=== PATIENT | female | born 1935 | race Native Hawaiian/Other Pacific Islander ===

== ENCOUNTER 2016-11-27 11:46 | Outpatient (CLI) | payer OTHER | END 2016-11-27 19:09 | disposition home or self-care (01) | LOC: RAD 11:46 | DX: M25.511 Pain in right shoulder (principal) ==

== ENCOUNTER 2017-01-05 14:20 | Emergency (ER) | payer OTHER ==
[~2017-01-05] VITALS: Ht 162.6 cm; Wt 90.7 kg
[2017-01-05] MEDS ORDERED: FURO40TA93 PO (14:44)
[2017-01-05] MEDS ORDERED: ALLO300T23 PO (14:44)
[2017-01-05] MEDS ORDERED: TRAM50TA PO (14:45)
[2017-01-05] MEDS ORDERED: LABETALOL200 MG OR (14:46)
[2017-01-05] MEDS ORDERED: CLONIDINE0.3 MG PO (14:46)
[2017-01-05] MEDS ORDERED: CARB25TA29 PO (14:46)
[2017-01-05] MEDS ORDERED: CELEXA20 MG PO (14:47)
[2017-01-05] MEDS ORDERED: SIMV20TA2 PO (14:47)
[2017-01-05] MEDS ORDERED: SYNTHROID137 MC1 PO (14:48)
[2017-01-05] MEDS ORDERED: OMEP20CA PO (14:48)
[2017-01-05] MEDS ORDERED: FERROUS SULF325 M1 OR (14:49)
[2017-01-05] MEDS ORDERED: HYDR5TAB9 PO (14:51)
[2017-01-05] MEDS ORDERED: ASPIR-8181 MG OR (14:51)
[2017-01-05] MEDS ORDERED: PROM25TA52 PO (14:52)
[2017-01-05] MEDS ORDERED: ROPINIROLE1 MG OR (14:53)
[2017-01-05 15:25] LABS: PLATELET COUNT 150 K/uL (152-353)
[2017-01-05 15:31] LABS: POTASSIUM 3.9 mmol/L (3.6-5.2)
[2017-01-05 21:21] VITALS: BP 173/88; TEMP 99
== END 2017-01-05 21:33 | disposition home or self-care (01) ==
LOC: ED 14:20
DX: E86.9 Volume depletion, unspecified (principal); E86.0 Dehydration; K52.89 Other specified noninfective gastroenteritis and colitis; R11.2 Nausea with vomiting, unspecified
CPT/HCPCS: 36415; 80053; 82150; 83690; 85027; 96361; 96374; 99284; J2405

== ENCOUNTER 2017-02-11 12:43 | Inpatient (IN) | payer OTHER ==
[~2017-02-11] VITALS: Ht 162.6 cm; Wt 93.0 kg
[~2017-02-11 12:43] MED LIST: ALLO300T23 PO; ASPIR-8181 MG OR; CARB25TA29 PO; CELEXA20 MG PO; CLONIDINE0.3 MG PO; FERROUS SULF325 M1 OR; FURO40TA93 PO; HYDR5TAB9 PO; LABETALOL200 MG OR; OMEP20CA PO; PROM25TA52 PO; ROPINIROLE1 MG OR; SIMV20TA2 PO; SYNTHROID137 MC1 PO; TRAM50TA PO
[2017-02-11 12:55] VITALS: BP 182/116; TEMP 98.8
[2017-02-11 13:25] LABS: PLATELET COUNT 196 K/uL (152-353)
[2017-02-11 13:30] VITALS: BP 168/89
[2017-02-11 13:46] LABS: POTASSIUM 4.1 mmol/L (3.6-5.2)
[2017-02-11 14:30] VITALS: BP 180/98
[2017-02-11 16:33] VITALS: BP 186/95; TEMP 98; Ht 162.6 cm; Wt 93.0 kg
[2017-02-11] MEDS ORDERED: CETIRIZINE10 MG PO (17:29)
[2017-02-11] MEDS ORDERED: XALATAN0.005 % OP (17:30)
[2017-02-11 18:05] LABS: PARTIAL THROMBOPLASTIN TIME 29.1 SECONDS (24.5-33.6)
[2017-02-11 20:00] VITALS: BP 149/78; TEMP 98.5
[2017-02-12] VITALS: BP 171/59; TEMP 99.4
[2017-02-12 04:00] VITALS: BP 186/91; TEMP 98.3
[2017-02-12 06:09] LABS: POTASSIUM 3.7 mmol/L (3.6-5.2)
[2017-02-12 06:13] LABS: PLATELET COUNT 200 K/uL (152-353)
[2017-02-12 08:00] VITALS: BP 179/85; TEMP 97.8
[2017-02-12] MEDS ORDERED: PANTPAK PO (10:59)
[2017-02-12 12:03] VITALS: BP 184/89; TEMP 98.7
[2017-02-12 20:00] VITALS: BP 134/70; TEMP 98.8
[2017-02-13] VITALS: BP 142/74; TEMP 99.2
[2017-02-13 04:00] VITALS: BP 166/77; TEMP 98.5
[2017-02-13 06:59] LABS: PLATELET COUNT 191 K/uL (152-353)
[2017-02-13 07:12] LABS: POTASSIUM 3.8 mmol/L (3.6-5.2)
[2017-02-13 08:20] VITALS: BP 146/78; TEMP 97.9
--- NOTE | 2017-02-13 11:26 | NUR ---
09- UPDATED DR MCCRARY ON PT STATUS AND LABS. PT C/O NAUSEA AND SMALL AMOUNT OF DARK EMESIS NOTED. ORDERS FOR GASTROCCULT. 1015- RESULTS OF GASTROCCULT NEGATIVE AND REPORTED TO DR MCCRARY.
[2017-02-13 12:00] VITALS: BP 141/67; TEMP 98.1
--- NOTE | 2017-02-13 15:10 | NUR ---
IV SITE LEAKING. IV RESTARTED TO L AC WITH 20G ANGIOCATH X 1 ATTEMPT. PT TOLERATED WELL.
[2017-02-13 16:00] VITALS: BP 181/74; TEMP 98.4
--- NOTE | 2017-02-13 17:42 | NUR ---
CALLED DR MCCRARY WITH PT INCREASING BP. NEW ORDERS GIVEN TO GIVE 2100 DOSE OF LABETOLOL.
[2017-02-13 20:00] VITALS: BP 153/60; TEMP 98.3
[2017-02-14] VITALS: BP 165/78; TEMP 97.9
[2017-02-14 04:00] VITALS: BP 156/67; TEMP 97.9
[2017-02-14 05:20] LABS: PLATELET COUNT 175 K/uL (152-353)
[2017-02-14 05:47] LABS: POTASSIUM 3.8 mmol/L (3.6-5.2)
[2017-02-14 08:00] VITALS: BP 210/80; TEMP 98.3
--- NOTE | 2017-02-14 12:56 | NUR ---
D/C INSTRUCTIONS GIVEN TO PT. RX CALLED INTO [facility] FOR HOME DELIVERY IV D/C'D L AC 18G CATH TIP INTACT. BONE DENSITY SCAN RESCHEDULED FOR Saturday02/18/17 @ 9AM. PT TO GO SEE DR MCCRARY AFTER SCAN FOR F/U AND LAB WORK.
== END 2017-02-14 13:07 | disposition home or self-care (01) | DRG 683 ==
LOC: ED 12:43 → MED/SURG 14:50
PROVIDERS: Family Medicine; Internal Medicine
PROC: 30233N1 Transfusion of Nonautologous Red Blood Cells into Peripheral Vein, Percutaneous Approach (ICD-10-PCS; principal; 2017-02-13)
DX: N17.8 Other acute kidney failure (principal); L03.116 Cellulitis of left lower limb; L03.115 Cellulitis of right lower limb; R07.89 Other chest pain; I10 Essential (primary) hypertension; D64.89 Other specified anemias; I12.9 Hypertensive chronic kidney disease with stage 1 through stage 4 chronic kidney disease, or unspecified chronic kidney disease; N18.4 Chronic kidney disease, stage 4 (severe); I25.10 Atherosclerotic heart disease of native coronary artery without angina pectoris; J44.9 Chronic obstructive pulmonary disease, unspecified; E87.79 Other fluid overload
CPT/HCPCS: 36415; 36430; 36600; 80053; 82271; 82550; 82805; 83735; 83880; 83986; 84100; 84484; 85027; 85610; 85730; 86850; 86900; 86901; 86922; 93005; 94760; 96372; 96374; 99283; J1885; J1940; P9016

== ENCOUNTER 2017-02-18 08:53 | Outpatient (CLI) | payer OTHER ==
[~2017-02-18 08:53] MED LIST changes: +CETIRIZINE10 MG PO; +PANTPAK PO; +XALATAN0.005 % OP
== END 2017-02-18 19:25 | disposition home or self-care (01) ==
LOC: RAD 08:53
DX: M81.0 Age-related osteoporosis without current pathological fracture (principal)